=== PATIENT | male | born 1975 ===

== ENCOUNTER 2017-05-22 23:14 | Inpatient (IN) | payer OTHER ==
[2017-05-22 23:14] VITALS: BMI 29.2
[2017-05-22] MEDS ORDERED: Sodium Chloride 0.9% 1,000 ML IV STA (23:29)
--- NOTE | 2017-05-22 23:29 | ED PDOC ---
Arrival/HPI <Jamshid Martinez - Last Filed: 05/23/17 01:19> - General Historian: Patient <Lukas Brito - Last Filed: 05/26/17 09:44> - General Time Seen by Provider: 05/22/17 23:24 - History of Present Illness Narrative History of Present Illness (Text): 05/22/17 23:25 42 y/o male, no significant pmh, allergic to aminophyllin, biba c/o acute onset of fever/bodyache started today. Tmax 103.5F, last antipyretic over 7 hours ago , bodyache and joint pain, no recent traveling, no coughing or night sweat, no rash, no palpitation, no night sweat, no dizziness, no abdominal pain, no change in vision, no neck stiffness, no urinary symptoms, no other medical or psychological complaints. (Lukas Brito) Past Medical History - Provider Review Nursing Documentation Reviewed: Yes - Tetanus Immunization Tetanus Immunization: Unknown - Cardiac Hx Cardiac Disorders: Yes Hx Hypertension: Yes - Pulmonary Hx Respiratory Disorders: No - Neurological Hx Neurological Disorder: Yes HX Cerebrovascular Accident: Yes - HEENT Hx HEENT Disorder: No - Renal Hx Renal Disorder: No - Endocrine/Metabolic Hx Endocrine Disorders: No - Hematological/Oncological Hx Blood Disorders: No - Integumentary Hx Dermatological Disorder: No - Musculoskeletal/Rheumatological Hx Musculoskeletal Disorders: No - Gastrointestinal Hx Gastrointestinal Disorders: No - Genitourinary/Gynecological Hx Genitourinary Disorders: No - Psychiatric Hx Psychophysiologic Disorder: No Hx Substance Use: No - Past Surgical History Past Surgical History: No Previous - Surgical History Hx Appendectomy: Yes Hx Tonsillectomy: Yes - Suicidal Assessment Feels Threatened In Home Enviroment: No <Lukas Brito - Last Filed: 05/26/17 09:44> Family/Social History - Physician Review Nursing Documentation Reviewed: Yes Family/Social History: Unknown Family HX Smoking Status: Never Smoked Hx Alcohol Use: No Hx Substance Use: No <Lukas Brito - Last Filed: 05/26/17 09:44> Allergies/Home Meds <Jamshid Martinez - Last Filed: 05/23/17 01:19> <Lukas Brito - Last Filed: 05/26/17 09:44> Allergies/Adverse Reactions: Allergies aminophylline Allergy (Verified 05/22/17 23:29) ANAPHYLAXIS Home Medications: Home Meds Medication Instructions Recorded Confirmed Amlodipine/Valsartan [Exforge 1 tab PO DAILY 05/22/17 05/22/17 5-160 mg Tablet] Review of Systems - Review of Systems Constitutional: Fatigue, Fevers Eyes: absent: Vision Changes ENT: absent: Hearing Changes Respiratory: absent: SOB, Cough Cardiovascular: absent: Chest Pain Gastrointestinal: absent: Abdominal Pain, Nausea, Vomiting Skin: absent: Rash, Pruritis Neurological: absent: Headache, Dizziness Psychiatric: absent: Anxiety, Depression, Suicidal Ideation <Lukas Brito Q - Last Filed: 05/26/17 09:44> Physical Exam Vital Signs Reviewed: Yes Temperature: Afebrile Blood Pressure: Normal Pulse: Regular Respiratory Rate: Normal Appearance: Positive for: Well-Appearing, Non-Toxic, Ill-Appearing Pain Distress: Severe Mental Status: Positive for: Alert and Oriented X 3 - Systems Exam Head: Present: Atraumatic, Normocephalic Pupils: Present: PERRL Extroacular Muscles: Present: EOMI Conjunctiva: Present: Normal Ears: Present: NORMAL TM, Normal Canal. No: Erythema Mouth: Present: Moist Mucous Membranes Neck: Present: Normal Range of Motion, Trachea Midline. No: Meningeal Signs, MIDLINE TENDERNESS, Paraspinal Tenderness, Lymphadenopathy Respiratory/Chest: Present: Clear to Auscultation, Good Air Exchange. No: Respiratory Distress, Accessory Muscle Use Cardiovascular: Present: Regular Rate and Rhythm, Normal S1, S2. No: Murmurs Abdomen: Present: Normal Bowel Sounds. No: Tenderness, Distention, Peritoneal Signs Back: Present: Normal Inspection Upper Extremity: Present: Normal Inspection. No: Cyanosis, Edema Lower Extremity: Present: Normal Inspection. No: Edema Neurological: Present: GCS=15, Speech Normal, Motor Func Grossly Intact, Gait Normal, Memory Normal Skin: Present: Warm, Dry, Normal Color. No: Rashes Psychiatric: Present: Alert, Oriented x 3, Normal Insight, Normal Concentration <Lukas Brito Q - Last Filed: 05/26/17 09:44> Vital Signs Temp Pulse Resp BP Pulse Ox 05/23/17 03:00 107 H 18 105/59 L 94 L 05/23/17 01:14 99.8 F H 114 H 16 120/65 94 L 05/23/17 00:03 103.2 F H 05/22/17 23:20 103.2 F H 143 H 18 125/66 100 Medical Decision Making <Jamshid Martinez - Last Filed: 05/23/17 01:19> - Lab Interpretations I have reviewed the lab results: Yes Interpretation: Abnormal lab values (lactic acid 2.2) - RAD Interpretation Go Go Dancer: Radiologist - EKG Interpretation Interpreted by ED Physician: Yes Type: 12 lead EKG <Lukas Brito - Last Filed: 05/26/17 09:44> ED Course and Treatment: 05/22/17 23:32 -labs/ua/rapid flu/vbg shock panel -CXR -IVF/tylenol and toradol 05/23/17 01:10 -Labs are non-significant except lactic 2.2, code sepsis activated. -Rapid flu is negative but clinical suspicious is high. -blood and urine cultures ordered with the IV rocephine and azithromycin, po tamiflu -Pt. will need admission for sepsis, despite 2L of IVF and he is still tachycardic. Case discussed with Dr. Martinez and agreed that he needs to be admitted. -Chest xray: no obvious consolidation but vague findings for bronchial thickening vs. interstial infiltrate noted. Clinically, pt. is not coughing. -EKG: Sinus tachycardia @ 130 BPM, no ST elevation or depression, T wave inversion on the lead III. 05/23/17 01:17 -I spoke to Dr. Ellington about the case/labs/radiology result, pending UA, agreed on the admission and request Dr. Almonte for routine consult which I put in the order already. -Dr. Martinez will put in the admission order. -Pt. agreed to be admitted. -Pt. still complaining about the generalized bodyache, morphine 2mg IV ordered, bridge orders entered. (Lukas Brito) - Lab Interpretations Microbiology Results: Microbiology Results 05/22/17 23:55 Blood-Venous Blood Culture - Preliminary NO GROWTH AFTER 3 DAYS 05/23/17 02:55 Blood-Venous Blood Culture - Final Escherichia Coli 05/23/17 02:55 Blood-Venous Gram Stain - Final 05/23/17 02:14 Urine Urine Culture - Final Gram Negative Marvel Lab Results: 05/23/17 11:30 05/23/17 11:30 Lab Results 05/24/17 07:30: Procalcitonin 4.57 H 05/23/17 11:30: Sodium 140, Chloride 106, Potassium 4.3, Carbon Dioxide 25, Anion Gap 13, BUN 10, Creatinine 0.9, Est GFR ( Amer) > 60, Est GFR (Non- Af Amer) > 60, Random Glucose 132 H, Calcium 8.8, Total Bilirubin 0.8, AST 64 H , ALT 98 H, Alkaline Phosphatase 57, Total Protein 6.7, Albumin 3.8, Globulin 2.9, Albumin/Globulin Ratio 1.3 05/23/17 11:30: WBC 15.4 H D, RBC 4.73, Hgb 12.6 L, Hct 38.9 L, MCV 82.2, MCH 26.6, MCHC 32.4, RDW 13.5, Plt Count 224, MPV 10.1 05/23/17 11:30: Procalcitonin 7.38 H 05/23/17 02:55: pO2 147 H, VBG pH 7.36, VBG pCO2 40.0, VBG HCO3 22.6, VBG Total CO2 23.8, VBG O2 Sat (Calc) 98.4 H, VBG Base Excess -2.7 L, VBG Potassium 3.6, Sodium 139.0, Chloride 109.0 H, Glucose 187 H, Lactate 1.7, FiO2 21.0, Venous Blood Potassium 3.6 05/23/17 02:14: Urine Color Yellow, Urine Appearance Cloudy, Urine pH 6.5, Ur Specific [place] <= 1.005, Urine Protein Trace H, Urine Glucose (UA) Negative, Urine Ketones Negative, Urine Blood Small H, Urine Nitrate Positive H, Urine Bilirubin Negative, Urine Urobilinogen 0.2, Ur Leukocyte Esterase Moderate H, Urine RBC 0 - 2, Urine WBC 15 - 20, Ur Epithelial Cells 0 - 2, Urine Bacteria Trace 05/22/17 23:55: pO2 47, VBG pH 7.44 H, VBG pCO2 37.0 L, VBG HCO3 25.1, VBG Total CO2 26.2, VBG O2 Sat (Calc) 90.2 H, VBG Base Excess 1.1, VBG Potassium 3.8 , Sodium 139.0, Chloride 104.0, Glucose 112 H, Lactate 2.2 H, FiO2 21.0, Venous Blood Potassium 3.8 05/22/17 23:55: WBC 11.0, RBC 5.15, Hgb 13.8 L, Hct 41.9 L, MCV 81.4, MCH 26.8, MCHC 32.9, RDW 13.0, Plt Count 273, MPV 10.5, Gran % 85.3 H, Lymph % (Auto) 10.2 L, [place] % (Auto) 2.6, Eos % (Auto) 1.7, Baso % (Auto) 0.2, Gran # 9.37 H, Lymph # 1.1 L, [place] # 0.3, Eos # 0.2, Baso # 0.02 05/22/17 23:55: Sodium 142, Chloride 104, Potassium 3.7, Carbon Dioxide 23, Anion Gap 18, BUN 14, Creatinine 1.1, Est GFR ( Amer) > 60, Est GFR (Non- Af Amer) > 60, Random Glucose 108, Calcium 9.3, Magnesium 1.7, Total Bilirubin 0.9, AST 57, ALT 89 H, Alkaline Phosphatase 64, Total Protein 7.1, Albumin 4.3, Globulin 2.9, Albumin/Globulin Ratio 1.5 05/22/17 23:55: Influenza Typ A,B (EIA) Negative for flu a/b - RAD Interpretation Radiology Orders: 05/22/17 23:30 CHEST PORTABLE [RAD] Stat 05/23/17 11:47 CHEST W/O CONTRAST [CT] Stat 05/24/17 16:25 ABD PELVIS PO & IV CONTRAST [CT] Stat 05/24/17 16:26 HEAD W/WO CONTRAST [CT] Urgent - EKG Interpretation EKG Interpretation (Text): 05/23/17 01:13 -EKG: Sinus tachycardia @ 130 BPM, no ST elevation or depression, T wave inversion on the lead III. (Lukas Brito) - Medication Orders Current Medication Orders: Acetaminophen (Tylenol 325mg Tab) 650 mg PO Q6H PRN PRN Reason: Pain, Mild (1-3) Acetaminophen/Butalbital/Caffeine (Fioricet) 1 tab PO Q8H PAUL Last Admin: 05/26/17 05:28 Dose: 1 tab MAR Pain Assessment Document 05/26/17 05:28 KP (Rec: 05/26/17 05:29 KP [id number]) Pain Reassessment Is this a pain reassessment? No Sleep Is patient sleeping during reassessment? No Presence of Pain Presence of Pain Yes Re-Assess: REN Pain Assessment Document 05/26/17 06:28 KP (Rec: 05/26/17 06:51 [id number]) Pain Reassessment Is this a pain reassessment? Yes Sleep Is patient sleeping during reassessment? Yes Albuterol Sulfate (Albuterol 0.083% Inhal Rebecca (2.5 Mg/3 Ml) Ud) 2.5 mg INH [id number] PRN PRN Reason: Flu symptoms Last Admin: 05/25/17 07:25 Dose: 2.5 mg Amlodipine Besylate (Norvasc) 5 mg PO DAILY [facility] Last Admin: 05/26/17 09:19 Dose: 5 mg MAR Pulse and Blood Pressure Document 05/26/17 09:19 EP (Rec: 05/26/17 09:21 EP [id number]) Pulse Pulse Rate (60-90) 82 Blood Pressure Blood Pressure (100/60-150/90) 131/93 Sodium Chloride (Sodium Chloride 0.9%) 1,000 mls @ 80 mls/hr IV .[id number] [facility] Last Admin: 05/26/17 02:00 Dose: 80 mls/hr eMAR Start Stop Document 05/26/17 02:00 (Rec: 05/26/17 04:54 [id number]) Intravenous Solution Start Date 05/26/17 Start Time 02:00 Ceftriaxone Sodium (Rocephin 2 Gm Ivpb) 2 gm in 100 mls @ 100 mls/hr IVPB DAILY PAUL PRN Reason: Protocol Stop: 06/04/17 10:01 Losartan Potassium (Cozaar) 100 mg PO 1700 [facility] Last Admin: 05/25/17 17:34 Dose: 100 mg Tramadol/Acetaminophen (Ultracet 37.5/325 Mg) 2 tab PO Q6H PRN PRN Reason: Pain, moderate (4-7) Discontinued Medications Acetaminophen (Tylenol 325mg Tab) 650 mg PO STAT STA Stop: 05/22/17 23:30 Last Admin: 05/23/17 00:03 Dose: 650 mg MAR Pain/Vitals Document 05/23/17 00:03 JOL (Rec: 05/23/17 00:03 JOL [id number]) Pain Reassessment Is This A Pain ReAssessment? No Sleep Is patient sleeping during reassessment? No Presence of Pain Presence of Pain No Vitals Temperature (97.6 F-99.6 F) 103.2 F Temperature Source Oral Acetaminophen (Tylenol 325mg Tab) 650 mg PO ONCE ONE Stop: 05/23/17 06:23 Last Admin: 05/23/17 06:28 Dose: 650 mg MAR Pain/Vitals Document 05/23/17 06:28 BN (Rec: 05/23/17 06:29 BN [id number]) Presence of Pain Presence of Pain Yes Location Pain Location Body Site Back Description Intermittent Intensity 6 Scale Used Numeric Pain Behavior Restlessness Re-Assess: [facility] Pain/Vitals Document 05/23/17 07:28 HOWARD (Rec: 05/23/17 15:43 HOWARD [id number]) Pain Reassessment Is This A Pain ReAssessment? Yes Sleep Is patient sleeping during reassessment? No Presence of Pain Presence of Pain Yes Location Left, Right or Bilateral Bilateral Pain Location Body [employer] Description Throbbing Pain Behavior Irritability Restlessness Acetaminophen (Tylenol 325mg Tab) 650 mg PO Q6H PRN PRN Reason: Pain, moderate (4-7) Last Admin: 05/24/17 05:39 Dose: 650 mg MAR Pain/Vitals Document 05/24/17 05:39 PCO (Rec: 05/24/17 05:40 PCO [id number]) Pain Reassessment Is This A Pain ReAssessment? No Sleep Is patient sleeping during reassessment? No Presence of Pain Presence of Pain Yes Location Pain Location Body [employer] Description Intermittent Intensity 7 Scale Used Numeric Variations/Patterns pressure Pain Behavior Rubbing Site Facial Grimacing Acetaminophen (Tylenol 325mg Tab) 650 mg PO ONCE ONE Stop: 05/23/17 11:19 Last Admin: 05/23/17 11:31 Dose: 650 mg [facility] Pain/Vitals Document 05/23/17 11:31 HOWARD (Rec: 05/23/17 11:32 HOWARD [id number]) Pain Reassessment Is This A Pain ReAssessment? No Sleep Is patient sleeping during reassessment? No Presence of Pain Presence of Pain Yes Pain Scale Used Pain Scale Used Numeric Location Left, Right or Bilateral Bilateral Pain Location Body Site Lumbar Description Constant Throbbing Intensity 10 Pain Behavior Moaning Irritability Restlessness Facial Grimacing Vitals Temperature (97.6 F-99.6 F) 103.0 F Acetaminophen/Butalbital/Caffeine (Fioricet) 1 tab PO Q4H PRN PRN Reason: Headache Last Admin: 05/25/17 08:17 Dose: 1 tab [facility] Pain Assessment Document 05/25/17 08:17 EP (Rec: 05/25/17 08:17 EP [id number]) Pain Reassessment Is this a pain reassessment? No Sleep Is patient sleeping during reassessment? No Presence of Pain Presence of Pain Yes Pain Scale Used Pain Scale Used Numeric Location Pain Location Body [employer] Description Description Intermittent Re-Assess: [facility] Pain Assessment Document 05/25/17 09:17 EP (Rec: 05/25/17 11:12 EP [id number]) Pain Reassessment Is this a pain reassessment? Yes Sleep Is patient sleeping during reassessment? No Presence of Pain Presence of Pain No Azithromycin (Zithromax) 250 mg PO DAILY PAUL PRN Reason: Protocol Last Admin: 05/24/17 10:39 Dose: 250 mg Sodium Chloride (Sodium Chloride 0.9%) 1,000 mls @ 500 mls/hr IV .Q2H PAUL Last Admin: 05/23/17 01:57 Dose: 500 mls/hr eMAR Start Stop Document 05/23/17 01:57 JOL (Rec: 05/23/17 01:58 JOL [id number]) Intravenous Solution Start Date 05/23/17 Start Time 01:58 Sodium Chloride (Sodium Chloride 0.9%) 1,000 mls @ 999 mls/hr IV .Q1H1M STA Stop: 05/23/17 00:29 Last Admin: 05/23/17 00:02 Dose: 999 mls/hr eMAR Start Stop Document 05/23/17 00:02 JOL (Rec: 05/23/17 00:02 JOL [id number]) Intravenous Solution Start Date 05/23/17 Start Time 00:02 End Date 05/23/17 End time 01:02 Total Infusion Time 60 Ceftriaxone Sodium (Rocephin 1 Gram Ivpb (D5w)) 1 gm in 100 mls @ 200 mls/hr IVPB STAT STA PRN Reason: Protocol Stop: 05/23/17 01:40 Last Admin: 05/23/17 01:31 Dose: 200 mls/hr eMAR Start Stop Document 05/23/17 01:31 JOL (Rec: 05/23/17 01:31 JOL [id number]) Intravenous Solution Start Date 05/23/17 Start Time 01:31 End Date 05/23/17 End time 02:01 Total Infusion Time 30 Azithromycin (Zithromax 500mg In Ns) 500 mg in 250 mls @ 167 mls/hr IVPB STAT STA PRN Reason: Protocol Stop: 05/23/17 02:35 Last Admin: 05/23/17 01:58 Dose: 167 mls/hr eMAR Start Stop Document 05/23/17 01:58 JOL (Rec: 05/23/17 01:58 JOL [id number]) Intravenous Solution Start Date 05/23/17 Start Time 01:58 End Date 05/23/17 End time 03:28 Total Infusion Time 90 Ceftriaxone Sodium (Rocephin 1 Gram Ivpb (D5w)) 1 gm in 100 mls @ 100 mls/hr IVPB DAILY PAUL PRN Reason: Protocol Last Admin: 05/23/17 09:24 Dose: 100 mls/hr eMAR Start Stop Document 05/23/17 09:24 HOWARD (Rec: 05/23/17 09:24 HOWARD [id number]) Intravenous Solution Start Date 05/23/17 Start Time 09:24 End Date 05/23/17 End time 10:24 Total Infusion Time 60 Meropenem 1 gm/ Dextrose 100 mls @ 100 mls/hr IVPB Q8 PAUL PRN Reason: Protocol Stop: 06/02/17 11:46 Last Admin: 05/24/17 14:15 Dose: Meropenem (Merrem Iv 1 Gm Premix) 50 mls @ 100 mls/hr IVPB Q8 PAUL PRN Reason: Protocol Stop: 06/02/17 23:59 Last Admin: 05/25/17 13:56 Dose: 100 mls/hr eMAR Start Stop Document 05/25/17 13:56 EP (Rec: 05/25/17 13:56 EP [id number]) Intravenous Solution Start Date 05/25/17 Start Time 13:56 End Date 05/25/17 End time 14:26 Total Infusion Time 30 Ibuprofen (Motrin Tab) 400 mg PO ONCE ONE Stop: 05/23/17 11:48 Last Admin: 05/23/17 12:17 Dose: 400 mg MAR Pain/Vitals Document 05/23/17 12:17 HOWARD (Rec: 05/23/17 12:18 HOWARD [id number]) Pain Reassessment Is This A Pain ReAssessment? No Sleep Is patient sleeping during reassessment? No Presence of Pain Presence of Pain Yes Pain Scale Used Pain Scale Used Numeric Location Left, Right or Bilateral Bilateral Intensity 9 Scale Used Numeric Pain Behavior Irritability Restlessness Re-Assess: MAR Pain/Vitals Document 05/23/17 13:17 HOWARD (Rec: 05/23/17 15:43 HOWARD [id number]) Pain Reassessment Is This A Pain ReAssessment? Yes Sleep Is patient sleeping during reassessment? No Presence of Pain Presence of Pain No Ibuprofen (Motrin Tab) 400 mg PO Q8H [facility] Last Admin: 05/25/17 09:02 Dose: MAR Pain/Vitals Document 05/25/17 09:02 EP (Rec: 05/25/17 09:02 EP [id number]) Pain Reassessment Is This A Pain ReAssessment? No Sleep Is patient sleeping during reassessment? No Presence of Pain Presence of Pain No Ketorolac Tromethamine (Toradol) 30 mg IVP STAT STA Stop: 05/22/17 23:30 Last Admin: 05/23/17 00:02 Dose: 30 mg MAR Pain Assessment Document 05/23/17 00:02 JOL (Rec: 05/23/17 00:03 JOL [id number]) Pain Reassessment Is this a pain reassessment? No Sleep Is patient sleeping during reassessment? No Presence of Pain Presence of Pain No IVP Administration Document 05/23/17 00:02 JOL (Rec: 05/23/17 00:03 JOL [id number]) Charges for Administration # of IVP Administrations 1 Morphine Sulfate (Morphine) 2 mg IVP STAT STA Stop: 05/23/17 02:00 Last Admin: 05/23/17 02:00 Dose: 2 mg IVP Administration Document 05/23/17 02:00 JOAna (Rec: 05/23/17 02:01 JOL [id number]) Charges for Administration # of IVP Administrations 1 Oseltamivir Phosphate (Tamiflu Cap) 75 mg PO STAT STA PRN Reason: Protocol Stop: 05/23/17 01:07 Last Admin: 05/23/17 01:31 Dose: 75 mg Oseltamivir Phosphate (Tamiflu Cap) 75 mg PO BID PAUL PRN Reason: Protocol Stop: 05/28/17 06:51 Last Admin: 05/24/17 10:39 Dose: 75 mg Tramadol HCl (Ultram) 50 mg PO ONCE ONE Stop: 05/23/17 11:27 Last Admin: 05/23/17 11:35 Dose: 50 mg REN Pain Assessment Document 05/23/17 11:35 HOWARD (Rec: 05/23/17 11:35 HOWARD [id number]) Pain Reassessment Is this a pain reassessment? No Sleep Is patient sleeping during reassessment? No Presence of Pain Presence of Pain Yes Pain Scale Used Pain Scale Used Numeric Location Left, Right or Bilateral Bilateral Pain Location Body [employer] Lumbar Description Description Throbbing Intensity of Pain at present 10 Acceptable Level of Pain 0 Pain Behavior Moaning Irritability Restlessness Facial Grimacing Alleviating Factors/Management Medication Techniques Re-Assess: REN Pain Assessment Document 05/23/17 12:35 HOWARD (Rec: 05/23/17 15:45 HOWARD [id number]) Pain Reassessment Is this a pain reassessment? Yes Sleep Is patient sleeping during reassessment? No Presence of Pain Presence of Pain Yes Pain Scale Used Pain Scale Used Numeric Location Left, Right or Bilateral Bilateral Description Description Constant Intensity of Pain at present 6 Pain Behavior Irritability Restlessness - PA / MEDICAL TRANSLATOR / Resident Statement KARMEN has reviewed & agrees with the documentation as recorded. KARMEN has examined the patient and agrees with the treatment plan. <Jamshid Martinez - Last Filed: 05/23/17 01:19> - PA / MEDICAL TRANSLATOR / Resident Statement KARMEN has reviewed & agrees with the documentation as recorded. KARMEN has examined the patient and agrees with the treatment plan. <Lukas Brito - Last Filed: 05/26/17 09:44> Disposition/Present on Arrival <Jamshid Martinez - Last Filed: 05/23/17 01:19> - Present on Arrival Any Indicators Present on Arrival: No History of DVT/PE: No History of Uncontrolled Diabetes: No Urinary Catheter: No History of Decub. Ulcer: No History Surgical Site Infection Following: None - Disposition Have Diagnosis and Disposition been Completed?: Yes Disposition Time: 01:13 Patient Plan: Observation <Lukas Brito - Last Filed: 05/26/17 09:44> - Disposition Diagnosis: Sepsis, Fever Disposition: HOSPITALIZED Patient Problems: Current Active Problems Problem Status Onset Fever Acute Sepsis Acute Condition: GUARDED
[2017-05-23 00:15] LABS: BASO # 0.02 K/mm3 (0.0-2.0); BASO % 0.2 % (0.0-3.0); EOS # 0.2 (0.0-0.7); EOS % 1.7 % (1.5-5.0); GRAN # 9.37 (1.4-6.5); GRAN % 85.3 % (50.0-68.0); HEMATOCRIT 41.9 % (42.0-52.0); LYMPH # 1.1 (1.2-3.4); LYMPH % 10.2 % (22.0-35.0); MEAN CELL VOLUME 81.4 fl (80.0-105.0); MEAN CORPUSCULAR HEMOGLOBIN 26.8 pg (25.0-35.0); MEAN CORPUSCULAR HGB CONC 32.9 g/dl (31.0-37.0); MEAN PLATELET VOLUME 10.5 fl (7.0-11.0); MONO # 0.3 (0.1-0.6); MONO % 2.6 % (1.0-6.0)
[2017-05-23 00:19] LABS: ALB/GLOB RATIO 1.5 (1.1-1.8); ALKALINE PHOSPHATASE 64 U/L (38-126); ALT/SGPT 89 U/L (7-56); AST/SGOT 57 U/L (17-59); BILIRUBIN,TOTAL 0.9 mg/dL (0.2-1.3); BLOOD UREA NITROGEN 14 mg/dL (7-21); CALCIUM 9.3 mg/dL (8.4-10.5); CARBON DIOXIDE 23 mmol/L (21-33); CHLORIDE 104 mmol/L (98-107); GFR AFRICAN-AMERICAN > 60; GLUCOSE,RANDOM 108 mg/dL (70-110); MAGNESIUM 1.7 mg/dL (1.7-2.2); POTASSIUM 3.7 mmol/L (3.6-5.0); SODIUM 142 mmol/L (132-148); TOTAL PROTEIN 7.1 g/dL (5.8-8.3)
[2017-05-23 00:52] LABS: VENOUS BLOOD GAS BASE EXCESS 1.1 mmol/L (0.0-2.0); VENOUS BLOOD PH 7.44 (7.32-7.43)
[2017-05-23] MEDS ORDERED: Azithromycin 500MG/NS 250ml 500 MG/250 ML BAG IVPB STA (01:06)
[2017-05-23] MEDS ORDERED: cefTRIAXone 1 gm 1 GM/100 ML BAG IVPB STA (01:11)
[2017-05-23] MEDS: Sodium Chloride 0.9% 1,000 ML IV SCH ×3 (01:23→11:25)
[2017-05-23] MEDS ORDERED: Morphine 5 MG/ML SYRINGE IVP STA (01:59)
[2017-05-23 03:19] LABS: VENOUS BLOOD GAS BASE EXCESS -2.7 mmol/L (0.0-2.0); VENOUS BLOOD PH 7.36 (7.32-7.43)
[2017-05-23 03:39] LABS: PH,URINE 6.5 (4.7-8.0); URINE BILIRUBIN NEGATIVE (NEGATIVE); URINE BLOOD SMALL (NEGATIVE); URINE GLUCOSE (UA) NEGATIVE (NEGATIVE); URINE KETONE NEGATIVE (NEGATIVE); URINE LEUKOCYTE ESTERASE MODERATE Leu/uL (NEGATIVE); URINE PROTEIN TRACE mg/dL (<30 mg/dL); URINE UROBILINOGEN 0.2 E.U./dL (<1 E.U./dL)
[2017-05-23 03:56] LABS: URINE APPEARANCE CLOUDY (CLEAR); URINE COLOR YELLOW (YELLOW)
[2017-05-23 04:23] LABS: URINE BACTERIA TRACE (NEG); URINE EPITHELIAL CELLS 0 - 2 /hpf (0-5); URINE RBC 0 - 2 /hpf (0-2); URINE WBC 15 - 20 /hpf (0-6)
--- NOTE | 2017-05-23 06:54 | PCM.SEPTIC ---
Sepsis Progress Note - Reassessment Type Date of Evaluation: 05/23/17 Time of Evaluation: 07:00 Reassessment Type: Non-invasive reassessment - Non Invasive Reassessment Were the most recent vital sign reviewed: Yes Vital Sign (Latest): Temp Pulse Resp BP Pulse Ox 98.9 F 102 H 18 117/66 98 05/23/17 04:19 05/23/17 04:19 05/23/17 04:19 05/23/17 05:00 05/23/17 05:00 Cardiovascular: Yes: Tachycardia Respiratory: Yes: Normal Breath Sounds. No: Rales, Rhonchi, Wheezing Capillary Refill: Normal (Less than 2 sec) Pulses: Normal Radial, Normal Dorsalis Pedis, Normal Posterior Tibialis Skin: Normal Color
--- NOTE | 2017-05-23 08:39 | RAD ---
HISTORY: medical clearance COMPARISON: No prior. FINDINGS: LUNGS: No active pulmonary disease. PLEURA: No significant pleural effusion identified, no pneumothorax apparent. CARDIOVASCULAR: Normal. OSSEOUS STRUCTURES: No significant abnormalities. VISUALIZED UPPER ABDOMEN: Normal. OTHER FINDINGS: None. IMPRESSION: No active disease.
[2017-05-23] MEDS: Albuterol 0.083% Inhal Sol (2.5 mg/3 mL) UD INH PRN ×2 (09:59→13:33)
[2017-05-23] MEDS ORDERED: cefTRIAXone 1 gm 1 GM/100 ML BAG IVPB SCH (10:00)
[2017-05-23 11:46] LABS: HEMATOCRIT 38.9 % (42.0-52.0); MEAN CELL VOLUME 82.2 fl (80.0-105.0); MEAN CORPUSCULAR HEMOGLOBIN 26.6 pg (25.0-35.0); MEAN CORPUSCULAR HGB CONC 32.4 g/dl (31.0-37.0); MEAN PLATELET VOLUME 10.1 fl (7.0-11.0); RED CELL DISTRIBUTION WIDTH 13.5 % (11.5-14.5); WHITE BLOOD COUNT 15.4 10^3/ul (4.5-11.0)
[2017-05-23 12:01] LABS: ALB/GLOB RATIO 1.3 (1.1-1.8); ALKALINE PHOSPHATASE 57 U/L (38-126); ALT/SGPT 98 U/L (7-56); AST/SGOT 64 U/L (17-59); BILIRUBIN,TOTAL 0.8 mg/dL (0.2-1.3); BLOOD UREA NITROGEN 10 mg/dL (7-21); CALCIUM 8.8 mg/dL (8.4-10.5); CARBON DIOXIDE 25 mmol/L (21-33); CHLORIDE 106 mmol/L (98-107); GFR AFRICAN-AMERICAN > 60; GLUCOSE,RANDOM 132 mg/dL (70-110); POTASSIUM 4.3 mmol/L (3.6-5.0); SODIUM 140 mmol/L (132-148); TOTAL PROTEIN 6.7 g/dL (5.8-8.3)
--- NOTE | 2017-05-23 12:44 | CARD ---
APPROVED REPORT EKG Measurement Heart [id number] <Conclusion> Sinus tachycardia Otherwise normal ECG
--- NOTE | 2017-05-23 13:45 | CT ---
PROCEDURE: CT Chest without contrast HISTORY: ?pna COMPARISON: Lower thoracic sections from and pelvis CT 11/17/2013 as well as upper abdomen sections. TECHNIQUE: Contiguous axial images were obtained through the chest without intravenous contrast enhancement. Sagittal and coronal reconstructions were performed. Radiation dose (DLP): 882.9 mGy-cm. This CT exam was performed using one or more of the following dose reduction techniques: Automated exposure control, adjustment of the mA and/or kV according to patient size, and/or use of iterative reconstruction technique. FINDINGS: LUNGS: A benign triangular-shaped 5 mm nodule stable of the right middle lobe in image 64 series 4 unchanged in size and appearance compared to 11/17/[address] Dependent atelectasis seen in the bilateral bases. Bilateral basilar dependent atelectasis is appreciated without interval alveolitis or pneumothorax throughout this exam. Central airways appear clear. MEDIASTINUM: Unremarkable thoracic aorta. No aneurysm. Normal sized heart. Main pulmonary artery unremarkable. No vascular congestion. No lymphadenopathy. PLEURA: No pleural fluid. No pneumothorax. BONES: No fracture. No destructive lesion. UPPER ABDOMEN: Diffuse fatty infiltration liver is appreciated increased in the interval with 3.3 cm area probable focal fatty sparing at the dome posteriorly and a 2nd area of focal fatty sparing is reiterated at the right lobe laterally, measuring 3.8 cm greatest dimension. This lateral focus appears stable in the interval. Further, splenomegaly has increased to 15.6 cm without focal lesion appreciable in the visualized partially captured spleen. OTHER FINDINGS: None. IMPRESSION: 1. No acute thoracic findings grossly evident in this unenhanced chest CT. Stable solitary 5 mm noncalcified nodule seen the right middle lobe base unchanged in size representing a benign process. Limited bilateral basilar dependent atelectasis as well as linear atelectasis. No definite alveolitis pleural effusion pneumothorax or significant lymphadenopathy. 2. Incidental diffuse fatty infiltration liver appears to have increased with a stable area of likely focal fatty sparing at the right lobe laterally. The secondary at the posterior dome is not as well compared as a stable finding. Follow-up MRI without contrast is advised for more complete evaluation of this finding. A neoplasm is not excluded here. 3. Splenomegaly increased to 15.6 cm without focal mass appreciable in the visualized spleen.
--- NOTE | 2017-05-23 16:41 | CARD ---
APPROVED REPORT EKG Measurement Heart [id number] <Conclusion> Sinus tachycardia Rightward axis Borderline ECG
--- NOTE | 2017-05-23 18:06 | CP.PCM.CON ---
History of Present Illness - History of Present Illness History of Present Illness: 42 year old male with PMH of CVA, HTN, S/P appendectomy, S/P tonsillectomy came in complaining of 1-2 days of fevers with rigors, body aches, some cough but dry. He denies rhinorrhea, no nausea or vomiting, no abdominal pain, no chest pain, no SOB, has headache which is pounding but no neck pain or stiffness, no diarrhea, no dysuria, no flank pain. He does not recall sick contacts, no animal contacts, no travel outside of [place] in the past 3 months. Infectious Diseases consult is requested to further evaluate and manage. Review of Systems - Review of Systems All systems: reviewed and no additional remarkable complaints except (as per HPI ) Past Patient History - Infectious Disease Hx of Infectious Diseases: None - Tetanus Immunizations Tetanus Immunization: Unknown - Past Social History Smoking Status: Never Smoked - CARDIAC Hx Cardiac Disorders: Yes Hx Hypertension: Yes - PULMONARY Hx Respiratory Disorders: No - NEUROLOGICAL Hx Neurological Disorder: Yes HX Cerebrovascular Accident: Yes (no weakness. left eye affected, had surgey, regained eyesight) - HEENT Hx HEENT Problems: No - RENAL Hx Chronic Kidney Disease: No - ENDOCRINE/METABOLIC Hx Endocrine Disorders: No - HEMATOLOGICAL/ONCOLOGICAL Hx Blood Disorders: No - INTEGUMENTARY Hx Dermatological Problems: No - MUSCULOSKELETAL/RHEUMATOLOGICAL Hx Musculoskeletal Disorders: No Hx Falls: No - GASTROINTESTINAL Hx Gastrointestinal Disorders: No - GENITOURINARY/GYNECOLOGICAL Hx Genitourinary Disorders: No - PSYCHIATRIC Hx Psychophysiologic Disorder: No Hx Substance Use: No - SURGICAL HISTORY Hx Appendectomy: Yes Other/Comment: tonsillectomy - ANESTHESIA Hx Anesthesia: Yes Hx Anesthesia Reactions: No Hx Malignant Hyperthermia: No Meds Allergies/Adverse Reactions: Allergies Allergy/AdvReac Type Severity Reaction Status Date / Time aminophylline Allergy ANAPHYLAXIS Verified 05/22/17 23:29 - Medications Medications: Current Medications Sodium Chloride (Sodium Chloride 0.9%) 1,000 mls @ 500 mls/hr IV .Q2H PAUL Last Admin: 05/23/17 01:57 Dose: 500 mls/hr Physical Exam - Constitutional Appears: Other (acutely ill) - Head Exam Head Exam: NORMAL INSPECTION - ENT Exam ENT Exam: Mucous Membranes Moist - Neck Exam Neck exam: Negative for: Meningismus - Respiratory Exam Respiratory Exam: Decreased Breath Sounds, Rales (at the bases) - Cardiovascular Exam Cardiovascular Exam: +S1, +S2 - GI/Abdominal Exam GI & Abdominal Exam: Soft. absent: Tenderness Results - Vital Signs Recent Vital Signs: Last Vital Signs Temp 98.9 F 05/23/17 04:19 Pulse 102 H 05/23/17 04:19 Resp 18 05/23/17 04:19 BP 117/66 05/23/17 05:00 Pulse Ox 98 05/23/17 05:00 - Labs Result Diagrams: 05/23/17 11:30 05/23/17 11:30 Labs: Laboratory Results - last 24 hr 05/23/17 05/23/17 02:14 02:55 pO2 147 H VBG pH 7.36 VBG pCO2 40.0 VBG HCO3 22.6 VBG Total CO2 23.8 VBG O2 Sat (Calc) 98.4 H VBG Base Excess -2.7 L VBG Potassium 3.6 Sodium 139.0 Chloride 109.0 H Glucose 187 H Lactate 1.7 FiO2 21.0 Venous Blood Potassium 3.6 Urine Color Yellow Urine Appearance Cloudy Urine pH 6.5 Ur Specific [place] <= 1.005 Urine Protein Trace H Urine Glucose (UA) Negative Urine Ketones Negative Urine Blood Small H Urine Nitrate Positive H Urine Bilirubin Negative Urine Urobilinogen 0.2 Ur Leukocyte Esterase Moderate H Urine RBC 0 - 2 Urine WBC 15 - 20 Ur Epithelial Cells 0 - 2 Urine Bacteria Trace Assessment & Plan - Assessment and Plan (Free Text) Plan: Assessment Systemic Inflammatory response syndrome, consider sepsis due to systemic viral illness R/O influenza, R/P pneumonia CVA HTN S/P appendectomy S/P tonsillectomy Plan Started patient on Tamiflu, Rocephin and Zithromax pending blood cx, CT chest, PCT; rapid Influenza test is negative but patient has compatible symptoms will monitor clinically will get HIV test
[2017-05-24] MEDS: Sodium Chloride 0.9% 1,000 ML IV SCH (01:48)
--- NOTE | 2017-05-24 02:56 | HP ---
HISTORY OF PRESENT ILLNESS: The patient is a 42-year-old known to me from previous admissions. He states since yesterday, he has been having cough, congestion, feeling very tired, has high-grade fever at home with generalized aches and pain, so he came to the emergency room for further evaluation. Denies any nausea or vomiting. PAST MEDICAL HISTORY: He was admitted in 11/2013, at that point, he had appendectomy done. ALLERGIES: HE IS ALLERGIC TO AMINOPHYLLINE. MEDICATIONS AT HOME: He occasionally takes Exforge 5/160 one tablet daily. REVIEW OF SYSTEMS: Significant for generalized weakness, body aches and pain, headaches, and congestion. SOCIAL HISTORY: He is single. Denies smoking, drinking, or alcohol use. PHYSICAL EXAMINATION: GENERAL: He is awake, alert, oriented, and communicative. VITAL SIGNS: He had temperature of 103, now follow up around 1 o'clock is 98.7, pulse 130, respirations 24, and blood pressure 149/91. LUNGS: Bilateral good airflow. He has soft crackle in the right lower lung area. HEART: S1 and S2 audible. ABDOMEN: Soft and nontender. No rebound. No guarding. NEUROLOGIC: He is awake, alert, oriented, and communicative. LABORATORY DATA: WBC 15.4, hemoglobin 12.6, hematocrit 38.9, and platelet of 224. Chemistry: Sodium 140, potassium 4.3, chloride 106, CO2 of 25, BUN 10, creatinine 0.9, and blood sugar of 135. AST 64 and ALT 98. Urine, moderate leukocyte. Flu test is negative. He had CT of the chest done that shows bilateral basal atelectasis, diffuse fatty infiltration of liver, and has splenomegaly. ASSESSMENT: 1. High-grade fever source probably upper respiratory tract infection. 2. Leukocytosis with shift. PLAN: The patient is currently on nebulizer treatment. He is on losartan. We will continue him on Rocephin and Zithromax and has been started on Tamiflu. We will follow up this patient in a.m. Vikki Ellington MD
[2017-05-24] MEDS: Albuterol 0.083% Inhal Sol (2.5 mg/3 mL) UD INH PRN (07:44)
[2017-05-24] MEDS: Meropenem 1 GM in Dextrose 5% In Water 100 ML IVPB SCH ×2 (12:17→14:15)
[2017-05-24] MEDS ORDERED: TraMADol/Apap 37.5/325 mg Tab PO PRN (16:29)
[2017-05-24] MEDS ORDERED: Iohexol 350 MG/100 ML VIAL ONE (17:09)
[2017-05-24] MEDS ORDERED: Iohexol 240 (50 ml) ONE (17:09)
[2017-05-24] MEDS: Apap-Butalbital-Caffeine 325-50-40mg Tab PO PRN ×2 (17:41→22:02)
--- NOTE | 2017-05-24 18:07 | PN ---
DATE: 05/24/2017 SUBJECTIVE: The patient is complaining of headaches. His fevers is improved. However, the headaches continues even with his fevers have subsided. PHYSICAL EXAMINATION: VITAL SIGNS: Temperature is 98, T-max was 102 yesterday with a blood pressure is 132/80, respiratory rate of 18. HEENT: Unremarkable. NECK: Supple. LUNGS: Have decreased breath sounds. HEART: Normal S1 and S2. ABDOMEN: Soft, nontender. No rebound, no guarding, no masses. LABORATORY EXAMINATION: Reveals a white count of 15,500, hemoglobin of 12 and there is 85% granulocytosis. There is no eosinophilia. Chemistries are noted. The patient does have LFT elevations and AST of 64, ALT of 98 with a procalcitonin 0.38. Urinalysis is noted and 15 to 20 WBCs in the urine, cloudy urine with trace of protein, positive nitrates, moderate leukocyte esterase. Influenza is negative. Microbiology reveals a Gram-negative uriah in the blood. Gram-negative uriah in the urine and review of systems noted. ASSESSMENT AND PLAN: This is a 42-year-old male with history of cerebrovascular accident, hypertension, appendectomy, tonsillectomy who has a girlfriend, no rectal sex. He does have a grandfather who had of prostate cancer. The patient has a history of travel to [place] many years ago. No recent travel. He is [place] born, admitted now with severe sepsis with Gram-negative uriah, bacteremia, Gram-negative uriah in the urine, must rule out prostate disease versus gastrointestinal pathology. The headaches are concerning, we will stop the Tamiflu, Rocephin, and Zithromax and use meropenem. Check on the identification of Gram-negative uriah. Recommend CAT scan of the abdomen and pelvis to rule out gallbladder etiology. We will also recommend a neurology consultation with the headaches and possible spinal tap and a Urology consultation for prostate workup and Genitourinary workup. We will use meropenem at this time. Case discussed in detail with Dr. Ellington. Dano Almonte MD
--- NOTE | 2017-05-24 19:32 | PN ---
DATE: SUBJECTIVE: The patient is a 42-year-old, seen and examined. States he is doing little better. Still has headache. Did not spike fever. No abdominal pain. No nausea or vomiting. No diarrhea. He did eat this morning and was able to hold. PHYSICAL EXAMINATION: VITAL SIGNS: The patient is afebrile. Pulse 87, respiration 19, blood pressure 118/83. LUNGS: Bilateral fair airflow. No rhonchi or crackle. HEART: S1 and S2 audible. No murmur. ABDOMEN: Soft, nontender. No rebound, no guarding. NEUROLOGIC: The patient is awake, alert, oriented, and communicative. LABORATORY EXAM: Blood culture positive for gram-negative uriah. Urine is positive for gram-negative uriah. A CT scan of the chest is unremarkable. ASSESSMENT: 1. Sepsis, leukocytosis, and intractable headache. 2. Gram-negative sepsis. 3. Gram-negative uriah in the urine. PLAN: We will order for CT scan of the abdomen and pelvis and CT scan of the brain. I will continue him on current antibiotics. He has been started on meropenem and he is on Zithromax. We will follow his CBC, CMP and LFTs in a.m. Vikki Ellington MD
[2017-05-24] MEDS: Meropenem IV 1 gm in NS 50 ML IVPB SCH (21:58)
--- NOTE | 2017-05-24 22:14 | CT ---
EXAM: CT Head Without Intravenous Contrast CLINICAL HISTORY: 42 years old, male; Pain; Headache; Headache not specified TECHNIQUE: Axial computed tomography images of the head/brain without intravenous contrast. All CT scans at this facility use one or more dose reduction techniques, viz.: automated exposure control; ma/kV adjustment per patient size (including targeted exams where dose is matched to indication; i.e. head); or iterative reconstruction technique. COMPARISON: CT - HEAD W/O CONTRAST 2016-05-17 10:16 FINDINGS: Brain: No intracranial hemorrhage. No mass. No definite edema. Ventricles: No hydrocephalus. Bones/joints: No acute fracture. Soft tissues: Unremarkable. Sinuses: Scattered minimal to mild mucosal thickening. Maxillary and sphenoid retention cysts. Mastoid air cells: No mastoid effusion. Orbits: Unremarkable as visualized. IMPRESSION: 1. No acute intracranial abnormality. 2. Incidental/non-acute findings are described above.
--- NOTE | 2017-05-24 22:21 | CT ---
EXAM: CT Abdomen and Pelvis With Intravenous Contrast CLINICAL HISTORY: 42 years old, male; Pain; Abdominal pain; Acute; Additional info: Sepsis TECHNIQUE: Axial computed tomography images of the abdomen and pelvis with intravenous contrast. All CT scans at this facility use one or more dose reduction techniques, viz.: automated exposure control; ma/kV adjustment per patient size (including targeted exams where dose is matched to indication; i.e. head); or iterative reconstruction technique. Coronal and sagittal reformatted images were created and reviewed. CONTRAST: 75 mL of OMNI 350 administered intravenously. COMPARISON: No relevant prior studies available. FINDINGS: Lower thorax: Minimal atelectasis/scarring. 0.3 cm RIGHT middle lobe nodule. ABDOMEN: Liver: Fatty infiltration with focal sparing. 3.4 x 3.5 x 2.5 cm enhancing lesion within RIGHT lobe. 1.7 x 1.4 x 3.1 cm ill-defined enhancing lesion versus focal fatty sparing within RIGHT lobe. Gallbladder and bile ducts: No calcified stones. No ductal dilation. Pancreas: No ductal dilation. No mass. Spleen: Mild splenomegaly, AP dimension. Adrenals: No mass. Kidneys and ureters: Mild atrophy of RIGHT kidney. No hydronephrosis. Stomach and bowel: No definite mural thickening. No obstruction. Appendix: Probable appendectomy clips. PELVIS: Bladder: Unremarkable. Reproductive: Unremarkable as visualized. ABDOMEN and PELVIS: Intraperitoneal space: No significant fluid collection. No free air. Bones/joints: No acute fracture. Soft tissues: Unremarkable. Vasculature: Minimal atherosclerotic disease. No aneurysm. Lymph nodes: No pathologically enlarged lymph nodes. IMPRESSION: 1. No definite acute intraabdominal abnormality. 2. Liver lesion, indeterminate. Recommend nonemergent MRI. 3. Pulmonary nodules. For low-risk patients, no follow-up is necessary. For high-risk patients (smoking history or other known risk factors) an optional CT at 12 months could be performed. 4. Incidental/non-acute findings are described above.
[2017-05-25] MEDS: Meropenem IV 1 gm in NS 50 ML IVPB SCH ×2 (05:19→13:56)
[2017-05-25 06:29] LABS: BASO # 0.05 K/mm3 (0.0-2.0); BASO % 0.7 % (0.0-3.0); EOS # 0.6 (0.0-0.7); EOS % 8.5 % (1.5-5.0); GRAN # 3.97 (1.4-6.5); GRAN % 55.9 % (50.0-68.0); HEMATOCRIT 39.3 % (42.0-52.0); LYMPH # 1.7 (1.2-3.4); LYMPH % 23.5 % (22.0-35.0); MEAN CELL VOLUME 82.6 fl (80.0-105.0); MEAN CORPUSCULAR HEMOGLOBIN 26.1 pg (25.0-35.0); MEAN CORPUSCULAR HGB CONC 31.6 g/dl (31.0-37.0); MEAN PLATELET VOLUME 10.3 fl (7.0-11.0); MONO # 0.8 (0.1-0.6); MONO % 11.4 % (1.0-6.0); RED CELL DISTRIBUTION WIDTH 13.5 % (11.5-14.5); WHITE BLOOD COUNT 7.1 10^3/ul (4.5-11.0)
[2017-05-25] MEDS: Albuterol 0.083% Inhal Sol (2.5 mg/3 mL) UD INH PRN (07:25)
[2017-05-25 07:37] LABS: ALB/GLOB RATIO 1.1 (1.1-1.8); ALKALINE PHOSPHATASE 72 U/L (38-126); ALT/SGPT 158 U/L (7-56); AST/SGOT 95 U/L (17-59); BILIRUBIN,TOTAL 0.5 mg/dL (0.2-1.3); BLOOD UREA NITROGEN 12 mg/dL (7-21); CALCIUM 9.2 mg/dL (8.4-10.5); CARBON DIOXIDE 25 mmol/L (21-33); CHLORIDE 106 mmol/L (98-107); GFR AFRICAN-AMERICAN > 60; GLUCOSE,RANDOM 103 mg/dL (70-110); POTASSIUM 4.8 mmol/L (3.6-5.0); SODIUM 141 mmol/L (132-148); TOTAL PROTEIN 7.3 g/dL (5.8-8.3)
[2017-05-25] MEDS: Apap-Butalbital-Caffeine 325-50-40mg Tab PO PRN (08:17)
[2017-05-25] MEDS: Sodium Chloride 0.9% 1,000 ML IV SCH (09:05)
--- NOTE | 2017-05-25 10:08 | CP.PCM.CON ---
History of Present Illness - History of Present Illness History of Present Illness: PGY-2 Neurology consult note for Dr. Thomas's service 42 yo male with PMH of HTN initially presented to ED with acute onset of fever, body ache and headache that started 3 day ago. Patient continued to have fevers with Tmax of 103.2F. Patient admits that along with the fever he also had headache. Patient describes it as a pounding bilateral frontal headache. He states that it waxes and wanes but has not completely resolved since he became sick. He states that it si associated with sensitivity to light and sound. He states that despite improvement of fevers and body aches he continues to have headaches. He states that he had 1 similar episode within the last year and was treated in the ED. He denies recent traveling, coughing, rash, palpitation, dizziness, abdominal pain, change in vision, neck stiffness, no other medical or psychological complaints. He states that this morning he is feeling better and his headache has improved after receiving fioricet last night. PMH: HTN PSH: appendectomy, tonsillectomy social history: denies smoking, alcohol use, illicit drug use family history: brother- leukemia allergy: aminophylline home meds: exforge Review of Systems - Review of Systems All systems: reviewed and no additional remarkable complaints except (as stated in HPI) Past Patient History - Infectious Disease Hx of Infectious Diseases: None - Tetanus Immunizations Tetanus Immunization: Unknown - Past Social History Smoking Status: Never Smoked - CARDIAC Hx Cardiac Disorders: Yes Hx Hypertension: Yes - PULMONARY Hx Respiratory Disorders: No - NEUROLOGICAL Hx Neurological Disorder: Yes HX Cerebrovascular Accident: Yes (no weakness. left eye affected, had surgey, regained eyesight) - HEENT Hx HEENT Problems: No - RENAL Hx Chronic Kidney Disease: No - ENDOCRINE/METABOLIC Hx Endocrine Disorders: No - HEMATOLOGICAL/ONCOLOGICAL Hx Blood Disorders: No - INTEGUMENTARY Hx Dermatological Problems: No - MUSCULOSKELETAL/RHEUMATOLOGICAL Hx Musculoskeletal Disorders: No Hx Falls: No - GASTROINTESTINAL Hx Gastrointestinal Disorders: No - GENITOURINARY/GYNECOLOGICAL Hx Genitourinary Disorders: No - PSYCHIATRIC Hx Psychophysiologic Disorder: No Hx Substance Use: No - SURGICAL HISTORY Hx Appendectomy: Yes Other/Comment: tonsillectomy - ANESTHESIA Hx Anesthesia: Yes Hx Anesthesia Reactions: No Hx Malignant Hyperthermia: No Meds Allergies/Adverse Reactions: Allergies Allergy/AdvReac Type Severity Reaction Status Date / Time aminophylline Allergy ANAPHYLAXIS Verified 05/22/17 23:29 - Medications Medications: Current Medications Acetaminophen (Tylenol 325mg Tab) 650 mg PO Q6H PRN PRN Reason: Pain, Mild (1-3) Acetaminophen/Butalbital/Caffeine (Fioricet) 1 tab PO Q4H PRN PRN Reason: Headache Last Admin: 05/25/17 08:17 Dose: 1 tab Albuterol Sulfate (Albuterol 0.083% Inhal Rebecca (2.5 Mg/3 Ml) Ud) 2.5 mg INH [id number] PRN PRN Reason: Flu symptoms Last Admin: 05/25/17 07:25 Dose: 2.5 mg Amlodipine Besylate (Norvasc) 5 mg PO DAILY [facility] Last Admin: 05/25/17 09:03 Dose: 5 mg Sodium Chloride (Sodium Chloride 0.9%) 1,000 mls @ 80 mls/hr IV .[id number] [facility] Last Admin: 05/25/17 09:05 Dose: 80 mls/hr Meropenem (Merrem Iv 1 Gm Premix) 50 mls @ 100 mls/hr IVPB Q8 PAUL PRN Reason: Protocol Stop: 06/02/17 23:59 Last Admin: 05/25/17 05:19 Dose: 100 mls/hr Ibuprofen (Motrin Tab) 400 mg PO Q8H [facility] Last Admin: 05/25/17 09:02 Dose: Not Given Losartan Potassium (Cozaar) 100 mg PO 1700 [facility] Last Admin: 05/24/17 17:41 Dose: 100 mg Tramadol/Acetaminophen (Ultracet 37.5/325 Mg) 2 tab PO Q6H PRN PRN Reason: Pain, moderate (4-7) Physical Exam - Constitutional Appears: No Acute Distress - Head Exam Head Exam: ATRAUMATIC, NORMAL INSPECTION, NORMOCEPHALIC - Eye Exam Eye Exam: EOMI, Normal appearance, PERRL - ENT Exam ENT Exam: Mucous Membranes Moist - Respiratory Exam Respiratory Exam: Clear to Auscultation Bilateral, NORMAL BREATHING PATTERN. absent: Rhonchi, Wheezes, Respiratory Distress - Cardiovascular Exam Cardiovascular Exam: REGULAR RHYTHM. absent: Tachycardia, Systolic Murmur - Extremities Exam Extremities exam: Positive for: normal inspection. Negative for: pedal edema, tenderness - Back Exam Back exam: NORMAL INSPECTION - Neurological Exam Neurological exam: Alert, CN II-XII Intact, Oriented x3, Reflexes Normal - Expanded Neurological Exam Expanded Patient oriented to: person, place, time Cranial nerves: EOM's Intact: Normal, Nystagmus: Normal Cerebellar Function: Finger to Nose: Normal Neuro motor strength exam: Left Upper Extremity: 5, Right Upper Extremity: 5, Left Lower Extremity: 5, Right Lower Extremity: 5 - Skin Skin Exam: Dry, Intact, Normal Color, Warm Results - Vital Signs Recent Vital Signs: Last Vital Signs Temp 97.9 F 05/25/17 07:30 Pulse 95 H 05/25/17 09:03 Resp 20 05/25/17 07:30 BP 135/87 05/25/17 09:03 Pulse Ox 97 05/25/17 07:30 - Labs Result Diagrams: 05/25/17 06:00 05/25/17 06:00 Labs: Laboratory Results - last 24 hr 05/25/17 05/25/17 06:00 06:00 WBC 7.1 D RBC 4.76 Hgb 12.4 L Hct 39.3 L MCV 82.6 MCH 26.1 MCHC 31.6 RDW 13.5 Plt Count 262 MPV 10.3 Gran % 55.9 Lymph % (Auto) 23.5 [place] % (Auto) 11.4 H Eos % (Auto) 8.5 H Baso % (Auto) 0.7 Gran # 3.97 Lymph # 1.7 [place] # 0.8 H Eos # 0.6 Baso # 0.05 Sodium 141 Potassium 4.8 Chloride 106 Carbon Dioxide 25 Anion Gap 15 BUN 12 Creatinine 0.9 Est GFR ( Amer) > 60 Est GFR (Non-Af Amer) > 60 Random Glucose 103 Calcium 9.2 Total Bilirubin 0.5 AST 95 H D ALT 158 H Alkaline Phosphatase 72 Total Protein 7.3 Albumin 3.8 Globulin 3.5 Albumin/Globulin Ratio 1.1 Assessment & Plan - Assessment and Plan (Free Text) Assessment: 42 yo male with PMH of HTN initially presented with sepsis due to gram negative uriah bacteremia with headache most likely due to fevers. 1. headache 2. gram negative uriah bacteremia 3. HTN - ct head was negative for acute disease - continue fioricet q8 for 2 days - will order MRI - If headache persist consider lumbar puncture - control blood pressure, SBP between 120-130 Case reviewed and discussed with attending
[2017-05-25] MEDS: Apap-Butalbital-Caffeine 325-50-40mg Tab PO SCH ×2 (14:31→20:31)
--- NOTE | 2017-05-25 17:41 | MRI ---
PROCEDURE: MRI BRAIN WITHOUT CONTRAST HISTORY: Headache COMPARISON: Noncontrast head CT from 05/24/2017 TECHNIQUE: Multiplanar, multisequence MR images of the brain were obtained without intravenous contrast enhancement. FINDINGS: HEMORRHAGE: None DWI: No evidence of an acute or early subacute infarction. BRAIN PARENCHYMA: [place]-white matter differentiation is preserved. There is no mass, mass effect or abnormal extra-axial fluid collection. The midline sagittal structures are normal. VENTRICLES: The ventricles are normal in size, shape and configuration. CRANIUM: There is normal bone marrow signal pattern. ORBITS: Grossly unremarkable. PARANASAL SINUSES/MASTOIDS: There are retention cysts/ polyps in both maxillary sinuses and in the sphenoid sinus. There is mild mucosal thickening in the frontal and ethmoid sinuses. The mastoid air cells are predominantly clear. VASCULAR SYSTEM: There are normal signal voids in the larger intracranial arteries. OTHER FINDINGS: None. IMPRESSION: No acute intracranial abnormality. Retention cysts/polyps in both maxillary and sphenoid sinuses.
--- NOTE | 2017-05-25 19:30 | PN ---
DATE: SUBJECTIVE: The patient is a 42-year-old, seen and examined. Doing little better. Headache is still there, but no fever, no chills. No nausea or vomiting. No diarrhea. Eating and tolerating. PHYSICAL EXAMINATION: VITAL SIGNS: He is afebrile. Pulse 80, respiration 18, blood pressure 131/89. LUNGS: Bilateral good airflow. No rhonchi or crackle. HEART: S1 and S2 audible. ABDOMEN: Soft, nontender. No rebound, no guarding. NEUROLOGIC: The patient is awake, alert, oriented, and communicative. LABORATORY EXAM: WBC 7.1, hemoglobin 12.4, hematocrit 39, and platelet of 262. Chemistry: Sodium 141, potassium 4.8, chloride 106, CO2 of 25, BUN 12, creatinine 0.9, and blood sugar of 103. AST 95 and ALT 158. Flu test is negative. MRI of the brain shows no acute intracranial abnormality, retention, polyp in both maxillary sinuses. ASSESSMENT: 1. Escherichia coli sepsis, Escherichia coli urinary tract infection. 2. Hypertension. 3. Abnormal liver function test probably secondary to medication, I will order for. PLAN: I will discontinue Motrin to see if he spikes. Give him Fioricet as needed. Continue his blood pressure medication. I will order for abdominal sonogram and also order for hepatitis profile. Vikki Ellington MD
[2017-05-26] MEDS: Sodium Chloride 0.9% 1,000 ML IV SCH (02:00)
[2017-05-26] MEDS: Apap-Butalbital-Caffeine 325-50-40mg Tab PO SCH ×3 (05:28→21:30)
[2017-05-26 07:24] LABS: INR 1.15 (0.93-1.08)
--- NOTE | 2017-05-26 08:39 | PN ---
DATE: 05/25/2017 SUBJECTIVE: The patient is seen in bed, in no acute distress, nontoxic. OBJECTIVE: VITAL SIGNS: On exam, temperature is 97, blood pressure is 140/100, respiratory rate 20. HEENT: Unremarkable. NECK: Supple. LUNGS: Have decreased breath sounds. HEART: Normal S1, S2. ABDOMEN: Soft, nontender. LABORATORY EXAMINATION: Reveals a white count of 7.1, hemoglobin of 12, platelets of 262. BUN and creatinine are noted. BUN and creatinine are reported to be at 12 and 0.9. Procalcitonin is 4.57, and urinalysis is noted. Influenza is negative. Blood cultures are reported to be E-coli. Urine cultures are gram-negative uriah. The E. coli is pansensitive, including sensitive to Cipro. The patient had a CAT scan of the abdomen and pelvis, which showed no acute definite acute intraabdominal abnormality. Liver lesion is indeterminate. Pulmonary nodules. The patient also had a CAT scan of the chest. CAT scan of the head has no significant findings. Review of orders reveals the patient to be on meropenem. The patient is scheduled for an MRI of the head, and we will also order a PSA. ASSESSMENT AND PLAN: He is a and we will follow closely with you. Dano Almonte MD
--- NOTE | 2017-05-26 09:27 | US ---
HISTORY: abnormal Lft COMPARISON: None. TECHNIQUE: Grayscale imaging was performed. FINDINGS: LIVER: Measures 21.2 cm. There is diffuse increased echogenicity of the liver parenchyma with focal fatty sparing adjacent to the gallbladder fossa. No mass. No intrahepatic bile duct dilatation. GALLBLADDER: There are no gallstones, wall thickening or pericholecystic fluid. The sonographic Jaffe's sign is negative. COMMON BILE DUCT: Measures 6.0 mm. No stones. No dilatation. PANCREAS: Unremarkable as visualized. No mass. No ductal dilatation. RIGHT KIDNEY: Measures 11.2cm. Normal echogenicity. No calculus, mass, or hydronephrosis. LEFT KIDNEY: Measures 14.3cm. Normal echogenicity. No calculus, mass, or hydronephrosis. SPLEEN: Normal in size and contour. No mass. AORTA: No aneurysmal dilatation. IVC: Unremarkable. OTHER FINDINGS: None. IMPRESSION: Moderate hepatomegaly. Diffuse increased echogenicity in the liver may reflect hepatic steatosis however parenchymal infectious/ inflammatory etiologies cannot be entirely excluded. Clinical and laboratory correlation is advised. No cholelithiasis or biliary dilatation.
--- NOTE | 2017-05-26 09:48 | CP.PCM.PN ---
<Rachael Eagle - Last Filed: 05/26/17 09:47> Subjective - Date & Time of Evaluation Date of Evaluation: 05/26/17 Time of Evaluation: 09:47 - Subjective Subjective: PGY-2 Neurology progress note for Dr. Thomas's service Patient seen and examined at bedside. No acute distress. Patient states that he continues to have headache however it improved after receiving fiorcet. He denies vision changes, dizziness, photophobia, fever, chills. Objective - Vital Signs/Intake and Output Vital Signs (last 24 hours): Temp Pulse Resp BP Pulse Ox 98.3 F 82 20 131/93 H 95 05/26/17 07:22 05/26/17 09:19 05/26/17 07:22 05/26/17 09:19 05/26/17 07:22 Intake and Output: 05/26/17 05/26/17 06:59 18:59 Intake Total 1080 420 Balance 1080 420 - Medications Medications: Current Medications Acetaminophen (Tylenol 325mg Tab) 650 mg PO Q6H PRN PRN Reason: Pain, Mild (1-3) Acetaminophen/Butalbital/Caffeine (Fioricet) 1 tab PO Q8H [facility] Last Admin: 05/26/17 05:28 Dose: 1 tab Albuterol Sulfate (Albuterol 0.083% Inhal Rebecca (2.5 Mg/3 Ml) Ud) 2.5 mg INH [id number] PRN PRN Reason: Flu symptoms Last Admin: 05/25/17 07:25 Dose: 2.5 mg Amlodipine Besylate (Norvasc) 5 mg PO DAILY [facility] Last Admin: 05/26/17 09:19 Dose: 5 mg Sodium Chloride (Sodium Chloride 0.9%) 1,000 mls @ 80 mls/hr IV .[id number] [facility] Last Admin: 05/26/17 02:00 Dose: 80 mls/hr Ceftriaxone Sodium (Rocephin 2 Gm Ivpb) 2 gm in 100 mls @ 100 mls/hr IVPB DAILY [facility] PRN Reason: Protocol Stop: 06/04/17 10:01 Losartan Potassium (Cozaar) 100 mg PO 1700 [facility] Last Admin: 05/25/17 17:34 Dose: 100 mg Tramadol/Acetaminophen (Ultracet 37.5/325 Mg) 2 tab PO Q6H PRN PRN Reason: Pain, moderate (4-7) - Labs Labs: 05/25/17 06:00 05/25/17 06:00 PT 12.7 SECONDS (9.4-12.5) H 05/26/17 06:30 INR 1.15 (0.93-1.08) H 05/26/17 06:30 APTT 31.0 Seconds (25.1-36.5) 05/26/17 06:30 - Constitutional Appears: No Acute Distress - Head Exam Head Exam: ATRAUMATIC, NORMAL INSPECTION, NORMOCEPHALIC - Eye Exam Eye Exam: EOMI, Normal appearance - ENT Exam ENT Exam: Mucous Membranes Moist - Neck Exam Neck Exam: Full ROM, Normal Inspection. absent: Tenderness - Respiratory Exam Respiratory Exam: NORMAL BREATHING PATTERN. absent: Respiratory Distress - Cardiovascular Exam Cardiovascular Exam: REGULAR RHYTHM - Neurological Exam Neurological Exam: Alert, Awake, CN II-XII Intact, Oriented x3 Neuro motor strength exam: Left Upper Extremity: 5, Right Upper Extremity: 5, Left Lower Extremity: 5, Right Lower Extremity: 5 - Skin Skin Exam: Dry, Intact, Normal Color, Warm Assessment and Plan - Assessment and Plan (Free Text) Assessment: 42 yo male with PMH of HTN initially presented with sepsis due to gram negative uriah bacteremia with headache most likely due to fevers. 1. headache 2. gram negative uriah bacteremia 3. HTN - ct head was negative for acute disease - MRI was negative - continue fioricet q8 for 2 days - If headache persist consider lumbar puncture - control blood pressure, SBP between 120-130 - continue antibiotics per ID recommendation Case reviewed and discussed with attending <López Thomas - Last Filed: 05/26/17 18:05> Objective - Vital Signs/Intake and Output Vital Signs (last 24 hours): Temp Pulse Resp BP Pulse Ox 98.4 F 86 18 142/63 97 05/26/17 16:00 05/26/17 16:00 05/26/17 16:00 05/26/17 16:00 05/26/17 16:00 Intake and Output: 05/26/17 05/26/17 06:59 18:59 Intake Total 1080 1020 Balance 1080 1020 - Medications Medications: Current Medications Acetaminophen (Tylenol 325mg Tab) 650 mg PO Q6H PRN PRN Reason: Pain, Mild (1-3) Acetaminophen/Butalbital/Caffeine (Fioricet) 1 tab PO Q8H [facility] Last Admin: 05/26/17 13:18 Dose: 1 tab Albuterol Sulfate (Albuterol 0.083% Inhal Rebecca (2.5 Mg/3 Ml) Ud) 2.5 mg INH [id number] PRN PRN Reason: Flu symptoms Last Admin: 05/25/17 07:25 Dose: 2.5 mg Amlodipine Besylate (Norvasc) 5 mg PO DAILY [facility] Last Admin: 05/26/17 09:19 Dose: 5 mg Ceftriaxone Sodium (Rocephin 2 Gm Ivpb) 2 gm in 100 mls @ 100 mls/hr IVPB DAILY [facility] PRN Reason: Protocol Stop: 06/04/17 10:01 Last Admin: 05/26/17 10:04 Dose: 100 mls/hr Losartan Potassium (Cozaar) 100 mg PO 1700 [facility] Last Admin: 05/26/17 17:46 Dose: 100 mg Tramadol/Acetaminophen (Ultracet 37.5/325 Mg) 2 tab PO Q6H PRN PRN Reason: Pain, moderate (4-7) - Labs Labs: 05/25/17 06:00 05/25/17 06:00 PT 12.7 SECONDS (9.4-12.5) H 05/26/17 06:30 INR 1.15 (0.93-1.08) H 05/26/17 06:30 APTT 31.0 Seconds (25.1-36.5) 05/26/17 06:30 Attending/Attestation - Attestation I have personally seen and examined this patient.: Yes I have fully participated in the care of the patient.: Yes I have reviewed all pertinent clinical information, including history, physical exam and plan: Yes
[2017-05-26] MEDS: cefTRIAXone 2 GM IN NS 2 GM/100 ML BAG IVPB SCH (10:04)
--- NOTE | 2017-05-26 23:49 | PN ---
DATE: 05/26/2017 SUBJECTIVE: The patient is seen early this morning. No fevers and no chills. No nausea. He is doing much better on exam. PHYSICAL EXAMINATION: VITAL SIGNS: Temperature is 98, blood pressure is 140/60 and respiratory rate 16. HEENT: Unremarkable. NECK: Supple. LUNGS: Have decreased breath sounds. HEART: Normal S1 and S2. ABDOMEN: Soft and nontender. No organomegaly. No rebound or guarding. LABORATORY EXAMINATION: Reveals a white count of 7.1, hemoglobin of 12 and platelets of 262. Chemistries reveal BUN of 12, creatinine 0.9, PSA is 19.6, procalcitonin is 4.57. Microbiology reveals a E. coli in the blood and has a gram-negative uriah in the urine. Identification as a gram-negative uriah in the urine has not been identified yet. E. coli in the blood is reported to be pansensitive also sensitive to p.o. Cipro. Review of the orders revealed the patient still be on ceftriaxone and the patient had an MRI of his brain because of persistent headaches. Dr. Thomas's progress note from this morning is reviewed. MRI; no acute intracranial abnormalities noted. ASSESSMENT AND PLAN: This is a 42-year-old male, no significant past medical history except for hypertension, appendectomy, tonsillectomy, and questionable cerebrovascular accident, who was admitted with Escherichia coli bacteremia, Escherichia coli urinary tract and prostatitis, currently on ceftriaxone with elevated PSA. We will switch to p.o. Cipro on discharge. We will treat his prostatitis, recommend a Urology followup for this 42-year-old male, and we will follow closely with you. Dano Almonte MD
[2017-05-27] MEDS: Apap-Butalbital-Caffeine 325-50-40mg Tab PO SCH ×2 (05:35→13:45)
--- NOTE | 2017-05-27 08:15 | PN ---
DATE: SUBJECTIVE: The patient is a 42 years old. Seen and examined. He is doing lot better. He does have pulsating headaches off and on. Denies any nausea or vomiting. Eating and tolerating. PHYSICAL EXAMINATION: VITAL SIGNS: He is afebrile, pulse 82, respirations 20, and blood pressure 131/93. LUNGS: Bilateral good airflow. No rhonchi or crackles. HEART: S1 and S2 audible. ABDOMEN: Soft. Nontender. No rebound. No guarding. NEUROLOGIC: The patient is awake, alert, oriented, and communicative. LABORATORY DATA: PSA is 19.6. Hepatitis profile is negative. ASSESSMENT: 1. Escherichia coli bacteremia and Escherichia coli sepsis. Repeat blood cultures on 05/25/2017 are negative 2. Escherichia coli urinary tract infection. 3. High level of prostate-specific antigen, probably prostatitis. PLAN: We will continue on current antibiotics. Continue analgesics. We will follow up this patient in the a.m. If he continue to improve and is stable discharge plan in a.m. Vikki Ellington MD
[2017-05-27 09:49] VITALS: BP 122/87; PULSE 71; RESP 20; TEMP 98.2; O2SAT 98
[2017-05-27] MEDS: cefTRIAXone 2 GM IN NS 2 GM/100 ML BAG IVPB SCH (11:12)
--- NOTE | 2017-05-27 14:01 | CP.PCM.PN ---
Subjective - Date & Time of Evaluation Date of Evaluation: 05/27/17 Time of Evaluation: 09:00 - Subjective Subjective: PGY-2 Neurology progress note for Dr. Thomas's service Patient seen and examined at bedside. No acute distress. Patient states that his headache is much luanne however he still feels that he need fioricet. He denies vision changes, dizziness, photophobia, fever, chills or neck stiffness. Objective - Vital Signs/Intake and Output Vital Signs (last 24 hours): Temp Pulse Resp BP Pulse Ox 98.2 F 71 20 122/87 98 05/27/17 09:47 05/27/17 11:13 05/27/17 09:47 05/27/17 11:13 05/27/17 09:47 Intake and Output: 05/27/17 05/27/17 06:59 18:59 Intake Total 1100 Balance 1100 - Medications Medications: Current Medications Acetaminophen (Tylenol 325mg Tab) 650 mg PO Q6H PRN PRN Reason: Pain, Mild (1-3) Acetaminophen/Butalbital/Caffeine (Fioricet) 1 tab PO Q8H [facility] Last Admin: 05/27/17 13:45 Dose: 1 tab Albuterol Sulfate (Albuterol 0.083% Inhal Rebecca (2.5 Mg/3 Ml) Ud) 2.5 mg INH [id number] PRN PRN Reason: Flu symptoms Last Admin: 05/25/17 07:25 Dose: 2.5 mg Amlodipine Besylate (Norvasc) [address] [facility] Last Admin: 05/27/17 11:13 Dose: 5 mg Ceftriaxone Sodium (Rocephin 2 Gm Ivpb) 2 gm in 100 mls @ 100 mls/hr IVPB DAILY [facility] PRN Reason: Protocol Stop: 06/04/17 10:01 Last Admin: 05/27/17 11:12 Dose: 100 mls/hr Losartan Potassium (Cozaar) [address] [facility] Last Admin: 05/26/17 17:46 Dose: 100 mg Tramadol/Acetaminophen (Ultracet 37.5/325 Mg) 2 tab PO Q6H PRN PRN Reason: Pain, moderate (4-7) - Labs Labs: 05/25/17 06:00 05/25/17 06:00 PT 12.7 SECONDS (9.4-12.5) H 12/07/17 06:30 INR 1.15 (0.93-1.08) H 05/26/17 06:30 APTT 31.0 Seconds (25.1-36.5) 05/26/17 06:30 - Constitutional Appears: Well, No Acute Distress - Head Exam Head Exam: ATRAUMATIC, NORMAL INSPECTION, NORMOCEPHALIC - Eye Exam Eye Exam: EOMI, Normal appearance - ENT Exam ENT Exam: Mucous Membranes Moist - Respiratory Exam Respiratory Exam: Clear to Ausculation Bilateral, NORMAL BREATHING PATTERN. absent: Respiratory Distress - Cardiovascular Exam Cardiovascular Exam: REGULAR RHYTHM - Neurological Exam Neurological Exam: Alert, Awake, CN II-XII Intact, Oriented x3 Neuro motor strength exam: Left Upper Extremity: 5, Right Upper Extremity: 5, Left Lower Extremity: 5, Right Lower Extremity: 5 - Skin Skin Exam: Dry, Intact, Normal Color, Warm Assessment and Plan - Assessment and Plan (Free Text) Assessment: 42 yo male with PMH of HTN initially presented with sepsis due to gram negative uriah bacteremia with headache most likely due to fevers. 1. headache 2. gram negative uriah bacteremia and UTI 3. HTN - ct head was negative for acute disease - MRI was negative - continue fioricet q8 - control blood pressure, SBP between 120-130 - continue antibiotics per ID recommendation Case reviewed and discussed with attending
--- NOTE | 2017-05-27 16:32 | CP.PCM.PN ---
Subjective - Date & Time of Evaluation Date of Evaluation: 05/27/17 Time of Evaluation: 12:05 - Subjective Subjective: Comfortable in bed, not in distress, ready to go home, no fevers, no more dysuria. Objective - Vital Signs/Intake and Output Vital Signs (last 24 hours): Temp Pulse Resp BP Pulse Ox 98.2 F 71 20 122/87 98 05/27/17 09:47 05/27/17 09:47 05/27/17 09:47 05/27/17 09:47 05/27/17 09:47 Intake and Output: 05/27/17 05/27/17 06:59 18:59 Intake Total 1100 Balance 1100 - Medications Medications: Current Medications Acetaminophen (Tylenol 325mg Tab) 650 mg PO Q6H PRN PRN Reason: Pain, Mild (1-3) Acetaminophen/Butalbital/Caffeine (Fioricet) 1 tab PO Q8H [facility] Last Admin: 05/27/17 05:35 Dose: 1 tab Albuterol Sulfate (Albuterol 0.083% Inhal Rebecca (2.5 Mg/3 Ml) Ud) 2.5 mg INH [id number] PRN PRN Reason: Flu symptoms Last Admin: 05/25/17 07:25 Dose: 2.5 mg Amlodipine Besylate (Norvasc) 5 mg PO DAILY [facility] Last Admin: 05/26/17 09:19 Dose: 5 mg Ceftriaxone Sodium (Rocephin 2 Gm Ivpb) 2 gm in 100 mls @ 100 mls/hr IVPB DAILY [facility] PRN Reason: Protocol Stop: 06/04/17 10:01 Last Admin: 05/26/17 10:04 Dose: 100 mls/hr Losartan Potassium (Cozaar) 100 mg PO 1700 [facility] Last Admin: 05/26/17 17:46 Dose: 100 mg Tramadol/Acetaminophen (Ultracet 37.5/325 Mg) 2 tab PO Q6H PRN PRN Reason: Pain, moderate (4-7) - Labs Labs: 05/25/17 06:00 05/25/17 06:00 PT 12.7 SECONDS (9.4-12.5) H 05/26/17 06:30 INR 1.15 (0.93-1.08) H 05/26/17 06:30 APTT 31.0 Seconds (25.1-36.5) 05/26/17 06:30 - Constitutional Appears: Non-toxic - Head Exam Head Exam: NORMAL INSPECTION - ENT Exam ENT Exam: Mucous Membranes Moist - Neck Exam Neck Exam: absent: Lymphadenopathy, Meningismus - Respiratory Exam Respiratory Exam: Decreased Breath Sounds - Cardiovascular Exam Cardiovascular Exam: +S1, +S2 - GI/Abdominal Exam GI & Abdominal Exam: Soft. absent: Tenderness Assessment and Plan - Assessment and Plan (Free Text) Plan: Assessment sepsis due to E. coli bacteremia, consider due to UTI with probable prostatitis CVA HTN S/P appendectomy S/P tonsillectomy Plan on Rocephin and can switch to PO Ciprofloxacin to complete 3-4 weeks of therapy for the prostatitis; PSA is elevated at 19.6 will get HIV test - patient should follow up with PMD
--- NOTE | 2017-05-28 18:14 | DS ---
HISTORY OF PRESENT ILLNESS: The patient is 42 years old, who was admitted because of high grade fever and headache. His flu test was negative; however, his blood culture came out positive for E. coli and urine was also positive for E. coli. He has been on IV antibiotics. Doing well. His LFT got elevated, probably secondary to Rocephin and intrahepatic cholestasis; however, he responded to the medication. Today, on examination, he is awake, alert, oriented, and communicative; still complaining of headache, much better than before. No sore throat. Eating and tolerating. PHYSICAL EXAMINATION: VITAL SIGNS: The patient is afebrile, pulse 71, respirations 20, blood pressure 122/87. LUNGS: Bilateral fair airflow. No rhonchi or crackles. HEART: S1 and S2 audible. ABDOMEN: Soft. Nontender. No rebound. No guarding. NEUROLOGIC: The patient is awake, alert, oriented, and communicative. LABORATORY DATA: His PSA is 19.6. Hepatitis profile is negative. ASSESSMENT: 1. Escherichia coli sepsis. 2. Escherichia coli urinary tract infection. 3. Probably prostatitis. 4. Hypertension. PLAN: The patient is going to be discharged home today. Give him Cipro 500 twice a day for 14 days and Fioricet as needed. He is advised strictly to follow up with Dr. Anguiano and Solo to have the prostate exam. Vikki Ellington MD
== END 2017-05-27 17:31 | disposition home or self-care (01) | DRG 872 ==
LOC: ED 23:14 → ERH 05-23 01:17 → 5RNO 05-23 03:49 → OBSVTOIN 05-24 17:24
PROVIDERS: ADMIT Internal Medicine; ATTEND Internal Medicine
DX: A41.51 Sepsis due to Escherichia coli [E. coli] (principal); N39.0 Urinary tract infection, site not specified; N41.9 Inflammatory disease of prostate, unspecified; I10 Essential (primary) hypertension; R65.20 Severe sepsis without septic shock; T36.1X5A Adverse effect of cephalosporins and other beta-lactam antibiotics, initial encounter; R79.89 Other specified abnormal findings of blood chemistry; Z90.49 Acquired absence of other specified parts of digestive tract; Z86.73 Personal history of transient ischemic attack (TIA), and cerebral infarction without residual deficits; Z80.42 Family history of malignant neoplasm of prostate; Z80.6 Family history of leukemia

== ENCOUNTER 2018-08-21 06:02 | Emergency (ER) | payer OTHER ==
[2018-08-21 06:03] VITALS: BMI 29.2
[2018-08-21 06:14] VITALS: RESP 18; O2SAT 98
[2018-08-21] MEDS ORDERED: Sodium Chloride 0.9% 1,000 ML IV STA (07:05)
--- NOTE | 2018-08-21 07:14 | ED PDOC ---
Arrival/HPI - General Chief Complaint: GI Problem Time Seen by Provider: 08/21/18 06:55 Historian: Patient, Spouse - History of Present Illness Time/Duration: Other (yesterday) Symptom Course: Improving Severity Level: Moderate Associated Symptoms (Text): 08/21/18 07:10 Patient complains of nausea vomiting diarrhea and dizziness beginning yesterday morning after eating a meal out. There is no abdominal pain. He feels feverish and has chills. No genitourinary symptoms. No headache. No numbness tingling or paresthesias. No weakness. His had the same meal, but she feels well. No travel or exposure. There is a history of an appendectomy. Past Medical History - Infectious Disease Hx of Infectious Diseases: None - Tetanus Immunization Tetanus Immunization: Unknown - Cardiac Hx Cardiac Disorders: Yes Hx Hypertension: Yes - Pulmonary Hx Respiratory Disorders: No - Neurological Hx Neurological Disorder: Yes HX Cerebrovascular Accident: Yes - HEENT Hx HEENT Disorder: No - Renal Hx Renal Disorder: No - Endocrine/Metabolic Hx Endocrine Disorders: No - Hematological/Oncological Hx Blood Disorders: No - Integumentary Hx Dermatological Disorder: No - Musculoskeletal/Rheumatological Hx Musculoskeletal Disorders: No - Gastrointestinal Hx Gastrointestinal Disorders: No - Genitourinary/Gynecological Hx Genitourinary Disorders: No - Psychiatric Hx Psychophysiologic Disorder: No Hx Substance Use: No - Past Surgical History Past Surgical History: No Previous - Surgical History Hx Appendectomy: Yes Hx Tonsillectomy: Yes - Anesthesia Hx Anesthesia: Yes Hx Anesthesia Reactions: No Hx Malignant Hyperthermia: No - Suicidal Assessment Feels Threatened In Home Enviroment: No Family/Social History - Physician Review Nursing Documentation Reviewed: Yes Family/Social History: Unknown Family HX Smoking Status: Never Smoked Hx Alcohol Use: No Hx Substance Use: No Allergies/Home Meds Allergies/Adverse Reactions: Allergies aminophylline Allergy (Verified 08/21/18 06:10) ANAPHYLAXIS Home Medications: Home Meds Medication Instructions Recorded Confirmed Irbesartan/Hydrochlorothiazide 1 tab PO DAILY 08/21/18 08/21/18 [Irbesartan-Hctz 150-12.5 mg Tb] Review of Systems - Review of Systems Constitutional: Fatigue, Fevers Respiratory: Normal Cardiovascular: Normal Gastrointestinal: Diarrhea, Nausea, Vomiting, Anorexia. absent: Abdominal Pain Genitourinary Male: absent: Dysuria, Frequency, Hematuria Neurological: Dizziness. absent: Headache, Focal Weakness, Gait Changes, Speech Changes, Facial Droop, Disequilibrium, Seizure Physical Exam Vital Signs Temp Pulse Resp BP Pulse Ox 08/21/18 06:14 97.8 F 98 H 18 139/96 H 98 Temperature: Afebrile Blood Pressure: Hypertensive Pulse: Regular Respiratory Rate: Normal Appearance: Positive for: Well-Appearing, Non-Toxic, Uncomfortable Pain Distress: None Mental Status: Positive for: Alert and Oriented X 3 - Systems Exam Head: Present: Atraumatic, Normocephalic Pupils: Present: PERRL Extroacular Muscles: Present: EOMI Conjunctiva: Present: Normal Ears: Present: NORMAL TM, Normal Canal. No: Erythema, TM Bulging Mouth: Present: Moist Mucous Membranes Pharnyx: No: ERYTHEMA, EXUDATE, TONSILS ENLARGED Neck: Present: Normal Range of Motion Respiratory/Chest: Present: Clear to Auscultation, Good Air Exchange. No: Respiratory Distress, Accessory Muscle Use Cardiovascular: Present: Regular Rate and Rhythm, Normal S1, S2. No: Murmurs Abdomen: No: Tenderness, Distention, Peritoneal Signs, Rebound, Guarding Back: Present: Normal Inspection Upper Extremity: Present: Normal Inspection. No: Cyanosis, Edema Lower Extremity: Present: Normal Inspection. No: Edema Neurological: Present: GCS=15, CN II-XII Intact, Speech Normal, Motor Func Grossly Intact, Normal Sensory Function, Normal Cerebellar Funct Skin: Present: Warm, Dry, Normal Color. No: Rashes Psychiatric: Present: Alert, Oriented x 3, Normal Insight, Normal Concentration Medical Decision Making ED Course and Treatment: 08/21/18 09:28 Nausea vomiting and diarrhea have improved. Patient still has some dizziness. We will give a trial of clear liquids. 08/21/18 09:46 EKG shows normal sinus rhythm rate of [address] or T wave changes. 08/21/18 10:15 Symptoms improved. Able to tolerate p.o. Discharged home accompanied by . Follow-up with PMD. Follow-up in ER as needed. - Medication Orders Current Medication Orders: Sodium Chloride (Sodium Chloride 0.9%) 1,000 mls @ 1,000 mls/hr IV .Q1H [facility] Stop: 08/21/18 08:04 Meclizine HCl (Antivert) 25 mg PO ONCE ONE Stop: 08/21/18 07:07 Ondansetron HCl (Zofran Inj) 4 mg IVP STAT STA Stop: 08/21/18 07:06 Pantoprazole Sodium (Protonix Inj) 40 mg IVP STAT STA Stop: 08/21/18 07:06 Disposition/Present on Arrival - Present on Arrival Any Indicators Present on Arrival: No History of DVT/PE: No History of Uncontrolled Diabetes: No Urinary Catheter: No History of Decub. Ulcer: No History Surgical Site Infection Following: None - Disposition Have Diagnosis and Disposition been Completed?: Yes Diagnosis: Gastroenteritis, Diarrhea, Nausea & vomiting, Vertigo Disposition: HOME/ ROUTINE Disposition Time: 10:16 Patient Plan: Discharge Condition: IMPROVED Discharge Instructions (ExitCare): Vertigo (a Type of Dizziness), Diarrhea in Adolescents and Adults, Viral Gastroenteritis, Nausea and Vomiting, Adult (DC) Additional Instructions: Clear liquids overnight. No driving. Follow-up with PMD. Follow-up in ER as needed. Prescriptions: Meclizine [Meclizine*] 25 mg PO Q6 #20 tab Ondansetron ODT [Zofran ODT] 4 mg PO Q6 #20 odt Referrals: Vikki Ellington MD [Primary Care Provider] - Follow up with primary Forms: [facility] (Romanian), WORK NOTE
[2018-08-21 07:20] LABS: BASO # 0.05 K/mm3 (0.0-2.0); BASO % 0.6 % (0.0-3.0); EOS # 0.3 (0.0-0.7); EOS % 3.1 % (1.5-5.0); HEMOGLOBIN 15.1 g/dL (14.0-18.0); LYMPH # 1.8 (1.2-3.4); LYMPH % 21.9 % (22.0-35.0); MEAN CELL VOLUME 79.9 fl (80.0-105.0); MEAN CORPUSCULAR HEMOGLOBIN 26.1 pg (25.0-35.0); MEAN CORPUSCULAR HGB CONC 32.7 g/dl (31.0-37.0); MEAN PLATELET VOLUME 10.9 fl (7.0-11.0); MONO # 0.5 (0.1-0.6); MONO % 5.5 % (1.0-6.0); RBC 5.78 10^6/uL (3.5-6.1); RED CELL DISTRIBUTION WIDTH 12.8 % (11.5-14.5); WHITE BLOOD COUNT 8.3 10^3/uL (4.5-11.0)
[2018-08-21 07:31] LABS: BLOOD UREA NITROGEN 18 mg/dL (7-21)
[2018-08-21 07:32] LABS: ALB/GLOB RATIO 1.4 (1.1-1.8); ALBUMIN 4.7 g/dL (3.0-4.8); ALT/SGPT 73 U/L (7-56); AST/SGOT 57 U/L (17-59); CALCIUM 9.9 mg/dL (8.4-10.5); GFR NON-AFRICAN AMERICAN > 60; LIPASE 111 U/L (23-300)
[2018-08-21 10:31] VITALS: BP 121/73; PULSE 76
[2018-08-21 10:57] VITALS: TEMP 98.2
--- NOTE | 2018-08-21 15:46 | CARD ---
APPROVED REPORT Date of service: 08/21/2018 EKG Measurement Heart [id number] <Conclusion> Normal sinus rhythm Left axis deviation Abnormal ECG
== END 2018-08-21 10:58 | disposition home or self-care (01) ==
LOC: ED 06:02
DX: K52.9 Noninfective gastroenteritis and colitis, unspecified (principal); R42 Dizziness and giddiness; I10 Essential (primary) hypertension; Z86.73 Personal history of transient ischemic attack (TIA), and cerebral infarction without residual deficits
CPT/HCPCS: 80053; 83690; 83735; 85025; 93005; 96361; 96374; 96375; 99285; C9113; J2405; J7030